=== PATIENT | female | born 1940 | race Caucasian/White ===

== ENCOUNTER → 2016-09-23 | Outpatient (CLI) | payer OTHER, BC ==
--- NOTE | 2016-09-24 08:24 | DIAGNOSTIC IMAGING REPORT ---
PET/CT CLINICAL HISTORY: Solitary pulmonary nodule. COMPARISON STUDY: No priors. TECHNIQUE: One hour following the IV administration of 12.3 mCi of F-18 FDG, PET/CT examination was performed from the orbital meatal line through the bony pelvis. Noncontrast CT is performed for the purposes of anatomic correlation and attenuation correction. Note that this does not reflect a diagnostic CT examination. Images were reviewed on a separate [employer] independent workstation. Fused images were obtained. Standard uptake values reported are maximum values within the region of interest expressed in gm/mL. FINDINGS: PET FINDINGS: Head and neck: There is expected physiologic activity within the visualized brain parenchyma at the skull base and the salivary glands. Low level pharyngeal activity is likely physiologic. Thorax: Evaluation of the thorax demonstrates expected physiologic myocardial activity. There are foci of linear airspace opacities in the lower lobes, greatest in the right middle lobe and lingula which are typical in appearance for scarring/atelectasis. These were not demonstrably FDG avid. No concerning pulmonary lesion is clearly identified. A precarinal node on image #77 measures 9 mm short axis. This demonstrates faint FDG activity with a maximum SUV of 2.9. No hilar adenopathy is seen. Abdomen and pelvis: There is expected activity within the liver, spleen, kidneys, renal collecting system, and bladder. Low-level bowel activity is likely within physical limits. Is a 1.0 cm left adrenal nodule seen image #126. This is FDG avid with a maximum SUV of 4.0. Unenhanced CT images: Visualized brain parenchyma the skull base is normal in appearance. The orbits are intact and the orbital contents are normal as visualized. The visualized paranasal sinuses and mastoid air cells appear clear. The salivary and thyroid glands are within normal limits. No cervical lymphadenopathy is seen. There is advanced atherosclerotic calcification of the thoracic aorta which is normal in caliber. A stent is suggested in the left subclavian artery. The heart is normal in size and without pericardial effusion. There are coronary artery calcifications. No axillary lymphadenopathy is seen. Advanced emphysema is observed. Fibrotic change is seen in the upper lobes along the major fissures. Foci of scarring versus atelectasis are identified at both lung bases. There is a small hiatal hernia. The unenhanced liver, gallbladder, spleen, right adrenal gland, and pancreas are grossly normal. The kidneys insert mild cortical atrophy and are without hydronephrosis. A 1.4 cm exophytic cyst arises from the right upper pole. There is advanced atherosclerotic calcification of the abdominal aorta which is normal in caliber. No bowel obstruction is seen. There is colonic diverticulosis without CT evidence of acute diverticulitis. A small fat-containing umbilical hernia is identified. Normal appendix is seen. There is no intraperitoneal free air or abdominal ascites. The bladder is decompressed and grossly unremarkable. The uterus is surgically absent. No adnexal lesion is seen. There is no abdominal, pelvic, or retroperitoneal lymphadenopathy. The skeletal structures are osteopenic. No lytic or blastic bony lesions are seen. Degenerative change is observed throughout the spine. IMPRESSION: 1. Advanced emphysema. 2. There are linear airspace opacities at the lung bases, typical in appearance for scarring/atelectasis. These were not demonstrably FDG avid. Correlation with the patient's prior outside CT scan is recommended, and continued CT follow-up is suggested. 3. No concerning or FDG avid pulmonary lesion is seen on today's examination. 4. There is a prominent and mildly FDG avid precarinal lymph node. This is of low suspicion and may be on a reactive basis. This can also be reassessed at follow-up. 5. There is a 1.0 cm left adrenal nodule. This is FDG avid with a maximum SUV of 4.0. This may represent an adenoma but cannot be definitively characterized. Although low suspicion, attention at follow-up is recommended. 6. Colonic diverticulosis without CT evidence of acute diverticulitis. 7. Additional findings as above. Electronically signed by: Graham Badillo M.D. 09/24/2016 8:23 AM Dictated Date/Time: 09/24/2016 8:06 AM
== END | disposition home or self-care (01) ==
LOC: C.PET 15:58
PROVIDERS: ATTEND Physician Assistant
DX: R91.1 Solitary pulmonary nodule (principal)